=== PATIENT | male | born 1985 | race Caucasian/White ===

== ENCOUNTER 2021-02-25 04:50 | Day surgery (SDC) | payer BC ==
[2021-02-24 13:51] VITALS: BMI 31.6
[2021-02-25 09:08] VITALS: TEMP 97.8
[2021-02-25 09:33] VITALS: PULSE 58
[2021-02-25 09:55] VITALS: BP 122/76
== END 2021-02-25 10:06 | disposition home or self-care (01) ==
LOC: JASU-ENDO 04:50
PROVIDERS: ATTEND Internal Medicine Gastroenterology
PROC: 0DB78ZX Excision of Stomach, Pylorus, Via Natural or Artificial Opening Endoscopic, Diagnostic (ICD-10-PCS; principal; 2021-02-25 08:54)
DX: K21.9 Gastro-esophageal reflux disease without esophagitis (principal); K31.89 Other diseases of stomach and duodenum; R10.10 Upper abdominal pain, unspecified
CPT/HCPCS: 88305-TC; 88342-TC